=== PATIENT | male | born 2000 | race African-American/Black ===

== ENCOUNTER 2021-12-23 08:00 | Outpatient (CLI) | payer MEDICAID, OTHER ==
[2021-12-23 18:42] LABS: BILIRUBIN,URINE NEGATIVE (NEGATIVE); GLUCOSE, URINE (UA) NEGATIVE (NEGATIVE); KETONES,URINE (UA) NEGATIVE (NEGATIVE); LEUKOCYTE ESTERASE, URINE NEGATIVE (NEGATIVE); NITRITE,URINE NEGATIVE (NEGATIVE); OCCULT BLOOD,URINE NEGATIVE (NEGATIVE); PROTEIN,URINE NEGATIVE (NEGATIVE); UROBILINOGEN,URINE 0.2 (NORMAL) E.U./dL (NORMAL)
[2021-12-23 18:53] LABS: CLARITY,URINE CLEAR (CLEAR)
[2021-12-23 20:07] LABS: BACTERIA,URINE None Seen /HPF (None Seen); MUCUS,URINE Few Strands; RBC,URINE 0-5 /HPF (0-5); SQUAMOUS EPITHELIAL CELL,UR FEW Squamous (<= Few); WBC,URINE 0-3 /HPF (0-3)
[2021-12-23 23:00] LABS: CHLAMYDIA TRACHOMATIS DNA NEGATIVE (NEGATIVE); NEISSERIA GONORRHOEAE DNA NEGATIVE (NEGATIVE)
[2021-12-24 10:01] LABS: HEPATITIS C ANTIBODY NON-REACTIVE (NON-REACTIVE)
[2021-12-26 17:26] LABS: HIV AG/AB 4TH GEN NON-REACTIVE (NON-REACTIVE)
[2021-12-27 12:35] LABS: HSV 1 IGG TYPE SPECIFIC AB 8.98 index; HSV 2 IGG TYPE SPECIFIC AB <0.90 index
== END 2021-12-23 23:59 | disposition home or self-care (01) ==
LOC: LAB.N 08:00
PROVIDERS: ATTEND Nurse Practitioner
DX: Z11.3 Encounter for screening for infections with a predominantly sexual mode of transmission (principal)
CPT/HCPCS: 36415; 81001; 81599; 86592; 86695; 86696; 86803; 87086; 87389; 87491; 87591; 87661

== ENCOUNTER 2023-07-14 16:14 | Outpatient (CLI) | payer OTHER, BC | END 2023-07-14 23:59 | disposition critical access hospital (66) | LOC: EMS 16:14 | DX: M54.2 Cervicalgia (principal); M54.9 Dorsalgia, unspecified; V43.02XA Car driver injured in collision with other type car in nontraffic accident, initial encounter; Y92.481 Parking lot as the place of occurrence of the external cause | CPT/HCPCS: A0425; A0429 ==

== ENCOUNTER 2023-07-14 16:36 | Emergency (ER) | payer OTHER, BC ==
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
[2023-07-14] MEDS: KETOROLAC 30 MG/ML VIAL IM STA ×2 (18:11→18:12)
[2023-07-14] MEDS ORDERED: IBUPROFEN 800 MG TABLET PO STA (18:29)
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
[2023-07-14 19:26] VITALS: BP 144/72; O2SAT 99
== END 2023-07-14 19:26 | disposition home or self-care (01) ==
LOC: EDBD → EDUNIT# → ED 16:36
DX: S16.1XXA Strain of muscle, fascia and tendon at neck level, initial encounter (principal); S39.012A Strain of muscle, fascia and tendon of lower back, initial encounter; V43.02XA Car driver injured in collision with other type car in nontraffic accident, initial encounter; Y93.89 Activity, other specified; Y92.511 Restaurant or cafe as the place of occurrence of the external cause
CPT/HCPCS: 72125; 72131; 99283; 99284; A9270